=== PATIENT | male | born 1965 | race Caucasian/White ===

== ENCOUNTER 2017-01-13 15:03 | Emergency (ER) | payer BC, SELFPAY ==
[2017-01-13] MEDS ORDERED: Adacel (T-DAP) 0.5 ML VIAL ONE (15:31)
== END 2017-01-13 16:02 | disposition home or self-care (01) ==
LOC: BURERS 15:03
DX: S61.411A Laceration without foreign body of right hand, initial encounter (principal); E11.9 Type 2 diabetes mellitus without complications; E78.5 Hyperlipidemia, unspecified; I10 Essential (primary) hypertension; F17.220 Nicotine dependence, chewing tobacco, uncomplicated; Z79.84 Long term (current) use of oral hypoglycemic drugs; Z79.899 Other long term (current) drug therapy; W26.0XXA Contact with knife, initial encounter; Y92.009 Unspecified place in unspecified non-institutional (private) residence as the place of occurrence of the external cause; Z23 Encounter for immunization
CPT/HCPCS: 12001; 90471; 90715

== ENCOUNTER 2017-05-13 08:54 | Emergency (ER) | payer OTHER, SELFPAY ==
[2017-05-13 09:37] LABS: Hemoglobin 16.9 g/dL (14.0-18.0); Mean Corpuscular HGB CONC 33.9 g/dL (32.0-36.0); Mean Corpuscular Hemoglobin 30.4 pg (27.0-31.0); Mean Corpuscular Volume 89.8 fl (80.0-94.0); Mean Platelet Volume 4.7 fL (7.4-10.4); Platelet Count 289 thou/uL (130-400); RBC Distribution Width 12.6 % (11.5-14.5); Red Blood Cell (RBC) Count 5.56 mill/uL (4.70-6.10); White Blood Cell (WBC) Count 9.3 thou/uL (4.8-10.8)
[2017-05-13 09:47] LABS: ALT (SGPT) 29 U/L (8-55); AST (SGOT) 33 U/L (5-34); Albumin 4.8 g/dL (3.5-5.0); Alkaline Phosphatase 62 U/L (40-150); Anion Gap 19 mmol/L (10-20); BUN (Urea Nitrogen) 24 mg/dL (8.9-20.6); Bilirubin, Total 0.5 mg/dL (0.2-1.2); CK (CPK) 132 U/L (30-200); CKMB 2.3 ng/mL (0-6.6); Calc. Creatinine Clearance 0 mL/min (70-130); Calcium 10.1 mg/dL (7.8-10.44); Carbon Dioxide 26 mmol/L (22-29); Chloride 96 mmol/L (98-107); Estimated GFR-MDRD 80; Globulin 3.2 g/dL (2.4-3.5); Glucose 114 mg/dL (70-105); Lipase 37 U/L (8-78); Potassium 5.4 mmol/L (3.5-5.1); Sodium 136 mmol/L (136-145); Troponin I 0.017 ng/mL (< 0.028)
[2017-05-13 09:54] LABS: #Basophils 0.1 thou/uL (0.0-0.2); #Lymphocytes 1.1 thou/uL (1.20-3.40); #Monocytes 0.4 thou/uL (0.11-0.59); #Neutrophils 7.6 thou/uL (1.40-6.50); %Basophils 1.1 % (0.0-1.0); %Eosinophils 0.5 % (0.0-10.0); %Lymphocytes 11.7 % (21.0-51.0); %Monocytes 4.6 % (0.0-10.0); %Neutrophils 82.2 % (42.0-75.0); Band 3 % (5-11); Lymphocytes 11 % (21-51); MDiff Complete? YES; Monocytes 1 % (0-10); Neutrophil 84 % (42-75); PLT Morphology Comment Appears Adequate; RBC Morphology Normal
[2017-05-13] MEDS ORDERED: Enoxaparin Sodium 100 MG/ML SYRINGE ONE (10:02)
--- NOTE | 2017-05-13 20:35 | RAD ---
PORTABLE CHEST: Date: 05-13-17 An AP portable film at 0913 is presented with no prior films available for comparison. FINDINGS: The heart is probably normal in size for body habitus and AP projection. There is no vascular congest ion, edema, or pleural effusion. The lungs are clear. The trachea is midline. IMPRESSION: No acute thoracic finding. POS: HOME
--- NOTE | 2017-05-13 20:41 | CT ---
CT ANGIO OF THE CHEST: Date: 05-13-[address] of the chest was performed emergently for evaluation of chest pain and abnormal lab work. A xial slices were acquired after giving a bolus of IV contrast. Coronal, sagittal, and oblique reforma tions were then obtained. FINDINGS: There is good opacification of the pulmonary arteries. There were no internal defects to suggest pulm onary emboli. Pulmonary artery sizes are normal. While there is no sign of aortic dissection, the asc ending aorta is abnormally dilated, measuring 5.8 cm in transverse dimension. Further work up to asce rtain the etiology of this is needed. There is no sign of pericardial fluid. The descending thoracic aorta appears normal. There is no significant amount of calcification in the aorta. No calcification is appreciated in the coronary arteries within the limitations of this scan with contrast. The lungs are clear. No infiltrate, effusion, or other acute parenchymal changes were noted. Scans in to the upper abdomen only partially show the adrenal glands. The areas seen were unremarkable. There is a 2.3 cm water density rounded area in the spleen with peripheral calcifications which is presuma roby a cyst. I doubt its current significance. The spleen is not enlarged. IMPRESSION: 1. No evidence of pulmonary embolism. 2. Excessively dilated ascending aorta (5.8 cm wide). Further work up needed to ascertain the cause. No sign of dissection. 3. Probable small splenic cyst. Findings discussed with Dr. Mcgraw at 1041 on 05-13-17. POS: HOME
== END 2017-05-13 10:59 | disposition short-term general hospital (02) ==
LOC: BURERS 08:54
DX: I71.2 Thoracic aortic aneurysm, without rupture (principal); I10 Essential (primary) hypertension; R07.2 Precordial pain; E11.9 Type 2 diabetes mellitus without complications; E78.5 Hyperlipidemia, unspecified; I25.2 Old myocardial infarction; F17.220 Nicotine dependence, chewing tobacco, uncomplicated; Z79.84 Long term (current) use of oral hypoglycemic drugs; Z79.899 Other long term (current) drug therapy
CPT/HCPCS: 71045; 71275; 80053; 82550; 82553; 83690; 84484; 85025; 85379; 93005; 94760; 96360; 96372; J1650

== ENCOUNTER 2022-02-22 10:33 | Outpatient (CLI) | payer BC ==
[2022-02-22 11:11] LABS: #Eosinphils 0.1 thou/uL (0.0-0.7); #Lymphocytes 1.7 thou/uL (1.20-3.40); #Monocytes 0.5 thou/uL (0.11-0.59); #Neutrophils 3.1 thou/uL (1.40-6.50); %Basophils 0.8 % (0.0-1.0); %Eosinophils 1.8 % (0.0-10.0); %Lymphocytes 31.3 % (21.0-51.0); %Monocytes 8.5 % (0.0-10.0); %Neutrophils 57.6 % (42.0-75.0); Hemoglobin 13.1 g/dL (14.0-18.0); Mean Corpuscular HGB CONC 31.9 g/dL (32.0-36.0); Mean Corpuscular Volume 97.1 fl (78.0-98.0); Mean Platelet Volume 7.7 fL (7.4-10.4); Platelet Count 157 thou/uL (130-400); RBC Distribution Width 12.1 % (11.5-14.5); Red Blood Cell (RBC) Count 4.22 mill/uL (4.70-6.10); White Blood Cell (WBC) Count 5.4 thou/uL (4.8-10.8)
[2022-02-22 11:25] LABS: ALT (SGPT) 26 U/L (8-55); AST (SGOT) 37 U/L (5-34); Albumin 3.4 g/dL (3.5-5.0); Alkaline Phosphatase 575 U/L (40-110); Anion Gap 16 mmol/L (10-20); BUN (Urea Nitrogen) 11 mg/dL (8.4-25.7); Bilirubin, Total 0.6 mg/dL (0.2-1.2); Calc. Creatinine Clearance 0 mL/min (70-130); Calcium 7.5 mg/dL (7.8-10.44); Carbon Dioxide 29 mmol/L (22-29); Chloride 101 mmol/L (98-107); Estimated GFR 103; Globulin 3.1 g/dL (2.4-3.5); Glucose 96 mg/dL (70-105); Potassium 3.6 mmol/L (3.5-5.1); Protein, Total 6.5 g/dL (6.0-8.3); Sodium 142 mmol/L (136-145)
== END 2022-02-22 10:34 | disposition home or self-care (01) ==
LOC: BURRAD 10:33
PROVIDERS: ATTEND Family Medicine
DX: M53.3 Sacrococcygeal disorders, not elsewhere classified (principal); R63.4 Abnormal weight loss
CPT/HCPCS: 36415; 71046; 72220; 80053; 84443; 85025

== ENCOUNTER 2022-03-05 07:25 | Outpatient (CLI) | payer BC ==
[2022-03-05] MEDS ORDERED: Iopamidol 370 76% 100 ML VIAL ONE (09:25)
== END 2022-03-05 07:26 | disposition home or self-care (01) ==
LOC: BURCT 07:25
PROVIDERS: ATTEND Family Medicine
DX: D64.9 Anemia, unspecified (principal); K63.89 Other specified diseases of intestine; J98.4 Other disorders of lung; D73.4 Cyst of spleen
CPT/HCPCS: 74177; Q9967

== ENCOUNTER 2022-06-11 09:06 | Emergency (ER) | payer BC, SELFPAY ==
[2022-06-11] MEDS ORDERED: Atropine Sulfate 1 mg/10 ml Syringe ONE ×2 (09:24→09:33)
[2022-06-11 09:26] LABS: #Basophils 0.1 thou/uL (0.0-0.2); #Eosinphils 0.4 thou/uL (0.0-0.7); #Lymphocytes 2.6 thou/uL (1.20-3.40); #Monocytes 0.8 thou/uL (0.11-0.59); %Eosinophils 4.1 % (0.0-10.0); %Lymphocytes 29.3 % (21.0-51.0); %Monocytes 8.8 % (0.0-10.0); %Neutrophils 56.8 % (42.0-75.0); Hemoglobin 10.6 g/dL (14.0-18.0); Mean Corpuscular HGB CONC 32.3 g/dL (32.0-36.0); Mean Corpuscular Hemoglobin 30.7 pg (27.0-31.0); Mean Corpuscular Volume 94.9 fl (78.0-98.0); Platelet Count 206 10x3/uL (130-400); RBC Distribution Width 14.1 % (11.5-14.5); Red Blood Cell (RBC) Count 3.47 mill/uL (4.70-6.10); White Blood Cell (WBC) Count 8.7 10x3/uL (4.8-10.8)
[2022-06-11 09:49] LABS: ALT (SGPT) 23 U/L (8-55); AST (SGOT) 26 U/L (5-34); Albumin 4.2 g/dL (3.5-5.0); Alkaline Phosphatase 102 U/L (40-110); Anion Gap 19 mmol/L (10-20); BUN (Urea Nitrogen) 22 mg/dL (8.4-25.7); Bilirubin, Total 0.3 mg/dL (0.2-1.2); Calc. Creatinine Clearance 0 mL/min (70-130); Carbon Dioxide 20 mmol/L (22-29); Chloride 107 mmol/L (98-107); Estimated GFR 69; Globulin 2.1 g/dL (2.4-3.5); Glucose 137 mg/dL (70-105); Protein, Total 6.3 g/dL (6.0-8.3); Sodium 139 mmol/L (136-145)
[2022-06-11 09:50] LABS: Potassium 6.5 mmol/L (3.5-5.1)
[2022-06-11] MEDS ORDERED: INSULIN REGULAR IN 0.9 % NACL 100 UNIT/100 ML BAG ONE (09:52)
[2022-06-11] MEDS ORDERED: Dextrose 50% Abboject 50 ML SYRINGE ONE (09:56)
[2022-06-11] MEDS ORDERED: CALCIUM GLUC 1 GM/NS 50 ML BAG ONE ×2 (10:34→10:38)
[2022-06-11] MEDS ORDERED: Calcium Gluc 4.6 MEQ/10 ML (100 MG/ML) ONE (10:34)
[2022-06-11] MEDS ORDERED: Insulin Regular 300 UNITS/3 ML VIAL ONE (11:49)
== END 2022-06-11 11:15 | disposition short-term general hospital (02) ==
LOC: BURERS 09:06
DX: R55 Syncope and collapse (principal); E87.5 Hyperkalemia; R00.1 Bradycardia, unspecified; E78.00 Pure hypercholesterolemia, unspecified; I10 Essential (primary) hypertension; E11.9 Type 2 diabetes mellitus without complications
CPT/HCPCS: 36416; 71045; 80053; 83605; 83880; 84484; 85025; 93005; 96361; 96374; 96375; J0461; J0610; J0611; J1815; J7999